=== PATIENT | female | born 1980 | race Caucasian/White ===

== ENCOUNTER → 2024-12-28 | Outpatient (CLI) | payer MEDICARE, MEDICAID ==
--- NOTE | 2024-12-29 08:54 | CONSULTATION ---
DATE OF CONSULTATION: 12/28/2024 DICTATING PHYSICIAN: Gabby Powers M.S., [facility]-PROFESSOR OF PHYSICS MODIFIED BARIUM SWALLOW STUDY REPORT REFERRING PHYSICIAN: Virgilio Burrell MD HISTORY OF PRESENT ILLNESS: The patient is a 44-year-old female and consents to this evaluation. A staff member from [facility] was present for this evaluation. History was obtained from the patient and medical records. The patient has a diagnosis of a CVA in 2017. She also has a diagnosis of gastroesophageal reflux disease and has had seizures. The patient notes that she has symptoms of dysphagia including coughing when she is eating and drinking on a daily basis for the last couple of months. CURRENT DIET: The patient is currently on a chopped diet with thin liquids. In terms of caffeine, the patient has perhaps once a week. She does not utilize tobacco products or drink alcohol. She rarely has chocolate. She has ice cream on a daily basis with all three of her meals. A typical breakfast consists of eggs, cereal, and ice cream. She snacks in the morning on string cheese. Lunch may be Taquitos, eggs, rice, and potatoes with ice cream. She snacks in the afternoon on strawberries and dinner is the same as lunch. MEDICATIONS: Aspercreme external lotion 10%, apply to the right shoulder and elbow topically every 6 hours as needed; aspirin 81 mg 1 capsule once daily orally; atorvastatin calcium 10 mg 1 tablet once daily orally; Debrox solution 6.5%, 5 drops in both ears as needed; divalproex sodium delayed release 250 mg 1 tablet once daily orally, divalproex sodium oral tablet delayed release 250 mg 2 tablets once daily orally; docosanol cream 10%, apply to cold sore topically every 3 hours as needed; Dulcolax suppository 10 mg every 86 hours as needed; Fleet's enema 7-19 g/118 mL 1 application rectally every 90 hours as needed; folic acid 1 mg 1 tablet once daily orally; hydrocodone-acetaminophen 5/325 mg 1 tablet every 8 hours orally as needed; lamotrigine 25 mg 1 tablet once daily orally; magnesium 250 mg 1 tablet once daily orally; melatonin 3 mg 1 tablet once daily orally; milk of magnesia suspension 400 mg/5 mL 30 mg every 72 hours as needed; triamterene HCTZ 37.5/25 mg 0.5 tablet by mouth 1 time daily; Tylenol 650 mg every 4 hours as needed; vitamin D 25 mcg 1 tablet once daily orally. PARAMETERS: The patient is seated in a lateral 90-degree view and administered the usual protocol of thin and nectar thick liquids, puree and solid consistencies, as well as self-regulated boluses of thin liquids from a cup. RESULTS: In the oral stage of the swallow, lingual strength was mildly reduced. The patient was initially noted to use a head tilting posture to propel the bolus from the oral to pharyngeal cavity. This would result in a swallow initiation delayed to the level of the piriformis for the thin liquid boluses. The patient was then cued to start utilizing a neutral head posture. When she utilized the neutral head posture, instead of over 75% of the thin liquid bolus being at the level of the piriformis before a swallow was initiated, the amount that was at the level of the piriformis was 25% or less. With this neutral head posture, there would be a mild to moderate oral residue following the initial swallow of the boluses with the exception of a moderate residue for the self-regulated boluses from the cup due to the large amount that she would take on her own. In the pharyngeal stage of the swallow, swallow initiation for thick liquid and puree and solid consistency was within functional limits. Tongue-base retraction was mild to moderately reduced. Anterior movement of the posterior pharyngeal wall was observed. Elevation of the hyothyroid complex was accomplished with full range of motion. There was no residue in the pharyngeal cavity after the tail of the bolus passes, and PES opening is within functional limits. At no time was the patient noted to penetrate or aspirate on any of the bolus sizes or consistencies. ANTERIOR, POSTERIOR VIEW: In the AP plane, the bolus split symmetrically between the piriform sinuses. There was proximal movement of the boluses below the level of the mid sternum. IMPRESSION: The patient demonstrates what appears to be a moderate oropharyngeal stage swallowing disorder characterized by reduced lingual strength, reduced tongue-base retraction, and delayed swallow initiation. The patient also demonstrated proximal movement of the boluses in the AP view. DIAGNOSES: R13.12, dysphagia, oropharyngeal phase; I63.9, cerebral infarction. PATIENT EDUCATION: Immediately following modified barium swallow study, the patient and staff member were able to view the results. The patient was educated on different compensatory strategies including taking smaller sips of her liquids and utilizing a neutral head posture when eating and drinking rather than tilting her head back as this significantly decreased the amount of bolus that was spilled into the pharyngeal cavity before a swallow was initiated. The patient was also educated on how to complete an effortful swallow and was able to demonstrate to this clinician that effortful swallow. She was instructed to utilize the swallow when eating and drinking and as an exercise on a daily basis. RECOMMENDATIONS: * It is recommended that the patient remain on her current diet of soft and bite-sized texture with thin liquid consistency. * It is recommended that the patient utilize compensatory strategies for swallowing including smaller sips, neutral head posture rather than tilting the head back, and utilizing an effortful swallow. LONG-TERM GOALS: The patient will maintain adequate hydration/nutrition with optimum safety and efficiency of swallow function on p.o. intake without overt signs and symptoms of aspiration for the highest possible diet level. FUNCTIONAL ORAL INTAKE: The FOIS was administered to establish and document a change in the functional eating activities of this patient over time. This is a 7-point scale with 1 indicating no oral intake and totally tube dependent and 7 indicating total oral intake with no restrictions. This patient received a 5 which indicates total oral intake of multiple consistencies requiring special preparation. G-CODE: [id number]. Thank you very much for asking me to participate in the care of this kind patient. Should you have any questions regarding this evaluation or recommendations, please do not hesitate to contact me at [phone]. During this examination, 3 minutes 52 seconds of fluoroscopy time and 42.01 CAK mGy were utilized. Gabby Powers M.S., [facility]-PROFESSOR OF PHYSICS TID: [id number] RECEIPT: [id number] CHELO/VIDAL
== END | disposition home or self-care (01) ==
LOC: RAD 12:04
PROVIDERS: ATTEND Internal Medicine
DX: R13.12 Dysphagia, oropharyngeal phase (principal); I63.9 Cerebral infarction, unspecified; K21.9 Gastro-esophageal reflux disease without esophagitis
CPT/HCPCS: 74230